=== PATIENT | female | born 1985 | race Hispanic/Latino ===

== ENCOUNTER → 2024-02-10 | Outpatient (CLI) | payer BC, OTHER ==
[~2024-02-10] MED LIST: IOHEXOL-350 75 ML VIAL IV ONE
== END | disposition home or self-care (01) ==
LOC: RAH 09:09
PROVIDERS: ATTEND Surgery
DX: R10.9 Unspecified abdominal pain (principal)
CPT/HCPCS: 74177; Q9967

== ENCOUNTER 2024-04-24 06:20 | Day surgery (SDC) | payer BC ==
[~2024-04-24] VITALS: Ht 170.2 cm; Wt 112.9 kg
[2024-04-24] VITALS (10 sets, daily range): BP systolic 98–119; BP diastolic 51–65; PULSE 72–88; RESP 14–23
[~2024-04-24 06:20] MED LIST changes: +BACI1CAP10 PO; +BUPR100T13 PO; +CALC-866 PO; +CALC625T31 PO; +ESTRADIOL PO; +FAMO40TA7 PO; -IOHEXOL-350 75 ML VIAL IV ONE; +MULT-1367 PO; +OMEP40CA21 PO; +SERT-439 PO
[2024-04-24] MEDS ORDERED: MIDAZOLAM HCL 1 MG/ML 2ML VIAL ONE (07:22)
[2024-04-24] MEDS ORDERED: PROPOFOL 10 MG/ML 20ML VIAL IV ONE (07:22)
[2024-04-24] MEDS ORDERED: LIDOCAINE PF 100MG/5ML (2%) SYRINGE 5ML ONE (07:57)
[2024-04-24] MEDS ORDERED: FENTANYL CITRATE PF 50 MCG/1 ML 2ML VIAL ONE (08:25)
== END 2024-04-24 10:00 | disposition home or self-care (01) ==
LOC: DAH 06:20 → ENDO 06:20
PROVIDERS: ATTEND Surgery
DX: R10.12 Left upper quadrant pain (principal); D12.3 Benign neoplasm of transverse colon; K62.1 Rectal polyp; R19.7 Diarrhea, unspecified; R39.15 Urgency of urination; K21.9 Gastro-esophageal reflux disease without esophagitis; Z79.899 Other long term (current) drug therapy; Z86.010 Personal history of colon polyps; Z98.890 Other specified postprocedural states; Z80.0 Family history of malignant neoplasm of digestive organs; Z87.891 Personal history of nicotine dependence; Z72.89 Other problems related to lifestyle
CPT/HCPCS: 81025; 45380; 84703; 87046; 36415; J3010; J2001; J2250; J2704; A4620; A4215 ×2; A4223; A4222; A4221; A4663; A4606; J3490